=== PATIENT | female | born 1990 | race American Indian/Alaskan Native ===

== ENCOUNTER 2022-05-28 17:53 | Emergency (ER) | payer OTHER, MEDICAID ==
[2022-05-28 18:27] VITALS: BP 132/95
[2022-05-29] MEDS ORDERED: DOXYCYCLINE 100 MG CAP PO ONE (00:04)
[2022-05-29] MEDS ORDERED: KETOROLAC 10 MG TAB PO ONE (00:04)
--- NOTE | 2022-05-29 00:30 | Emergency Department Report ---
- General Chief complaint: Skin/Abscess/Foreign Body Stated complaint: BOIL UNDER STOMACH AREA/ARMPIT Time Seen by Provider: 05/29/22 00:04 Source: patient Mode of arrival: Ambulatory Limitations: No Limitations - History of Present Illness Initial comments: 32-year-old black female with no past medical history presents to the emergency department for evaluation of abscess to left axillary area and suprapubic area. She states that she noticed abscess initially 1-1/2 weeks ago under her arm that she pressed and that moderate amount of purulent drainage. She states that abscess to her suprapubic area is firm and she has not been able to get any drainage from it. She denies fever, abdominal pain, nausea, and vomiting. MD complaint: abscess/boil -: week(s) (1.5) Location: LUE (Axillary area), genitals (Suprapubic area) Severity: mild Severity scale (0 -10): 2 Quality: aching Consistency: intermittent Worsens with: palpation Associated symptoms: denies other symptoms Treatments Prior to Arrival: attempted to drain pus at - Related Data Previous Rx's Medication Instructions Recorded Last Taken Type Amoxicillin/Potassium Clav 1 each PO BID 7 Days #14 10/12/21 Unknown Rx [Augmentin 875-125 Tablet] Docusate Sodium [Colace] 100 mg PO BID PRN 30 Days #60 10/12/21 Unknown Rx capsule Ferrous Sulfate [Ferrous Sulfate 324 mg PO TID 30 Days #90 10/12/21 Unknown Rx 324 MG] DOXYCYCLINE Hyclate [Vibramycin] 100 mg PO Q12HR 7 Days #14 capsule 05/29/22 Un known Rx Allergies Allergy/AdvReac Type Severity Reaction Status Date / Time ciprofloxacin [From Cipro] Allergy Rash Verified 10/10/21 15:55 sulfamethoxazole Allergy Rash Verified 10/10/21 15:55 [From Bactrim] trimethoprim [From Bactrim] Allergy Rash Verified 10/10/21 15:55 Abscess Boil HPI - HPI Chief Complaint: Skin/Abscess/Foreign Body Stated Complaint: BOIL UNDER STOMACH AREA/ARMPIT Time Seen by Provider: 05/29/22 00:04 Home Medications: Previous Rx's Medication Instructions Recorded Last Taken Type Amoxicillin/Potassium Clav 1 each PO BID 7 Days #14 10/12/21 Unknown Rx [Augmentin 875-125 Tablet] Docusate Sodium [Colace] 100 mg PO BID PRN 30 Days #60 10/12/21 Unknown Rx capsule Ferrous Sulfate [Ferrous Sulfate 324 mg PO TID 30 Days #90 10/12/21 Unknown Rx 324 MG] DOXYCYCLINE Hyclate [Vibramycin] 100 mg PO Q12HR 7 Days #14 capsule 05/29/22 Unknown Rx Allergies/Adverse Reactions: Allergies Allergy/AdvReac Type Severity Reaction Status Date / Time ciprofloxacin [From Cipro] Allergy Rash Verified 10/10/21 15:55 sulfamethoxazole Allergy Rash Verified 10/10/21 15:55 [From Bactrim] trimethoprim [From Bactrim] Allergy Rash Verified 10/10/21 15:55 ED Review of Systems ROS: Stated complaint: BOIL UNDER STOMACH AREA/ARMPIT Other details as noted in HPI Comment: All other systems reviewed and negative Constitutional: denies: chills, fever Eyes: denies: vision change Respiratory: denies: shortness of breath Cardiovascular: denies: chest pain, palpitations Gastrointestinal: denies: abdominal pain, nausea, vomiting Genitourinary: denies: urgency, dysuria Musculoskeletal: denies: back pain Skin: denies: rash, lesions Neurological: denies: headache, weakness ED Past Medical Hx - Past Medical History Hx Hypertension: No Hx Heart Attack/AMI: No Hx Congestive Heart Failure: No Hx Diabetes: No Hx Deep Vein Thrombosis: No Hx Liver Disease: No Hx Renal Disease: No Hx Sickle Cell Disease: No Hx Seizures: No Hx Asthma: No Hx COPD: No Hx HIV: No - Social History Smoking Status: Never Smoker - Medications Home Medications: Home Medications Medication Instructions Recorded Confirmed Last Taken Type Amoxicillin/Potassium Clav 1 each PO BID 7 Days #14 10/12/21 Unknown Rx [Augmentin 875-125 Tablet] Docusate Sodium [Colace] 100 mg PO BID PRN 30 Days #60 10/12/21 Unknown Rx capsule Ferrous Sulfate [Ferrous Sulfate 324 mg PO TID 30 Days #90 10/12/21 Unknown Rx 324 MG] DOXYCYCLINE Hyclate [Vibramycin] 100 mg PO Q12HR 7 Days #14 capsule 05/29/22 Unknown Rx ED Physical Exam - General Limitations: No Limitations General appearance: alert, in no apparent distress - Head Head exam: Present: atraumatic, normocephalic - Eye Eye exam: Present: normal appearance. Absent: conjunctival injection, periorbital swelling, periorbital tenderness - Neck Neck exam: Present: normal inspection, full ROM. Absent: tenderness, lymphadenopathy - Respiratory Respiratory exam: Present: normal lung sounds bilaterally. Absent: respiratory distress, wheezes, rales, rhonchi, stridor, chest wall tenderness - Cardiovascular Cardiovascular Exam: Present: regular rate, normal heart sounds - GI/Abdominal GI/Abdominal exam: Present: soft, normal bowel sounds. Absent: distended, tenderness, guarding, rebound, rigid - Extremities Exam Extremities exam: Present: normal inspection, full ROM, normal capillary refill. Absent: pedal edema, calf tenderness - Back Exam Back exam: Present: normal inspection - Neurological Exam Neurological exam: Present: alert, oriented X3, normal gait - Psychiatric Psychiatric exam: Present: normal affect, normal mood - Skin Skin exam: Present: warm, dry, intact, normal color - Expanded Skin Exam Expanded 1 - Circular abscessed area noted to be 2 cm in diameter. Minimal amount of erythema and edema noted, tender to palpation, but no purulent drainage noted. 2 - Small abscessed area less than 1 cm in diameter noted. Area tender to touch with minimal erythema and edema noted. No drainage noted. ED Course Vital Signs 05/28/22 18:25 Temperature 98 F Pulse Rate 88 Respiratory 16 Rate Blood Pressure 132/95 [Left] O2 Sat by Pulse 98 Oximetry ED Medical Decision Making - Medical Decision Making 32-year-old black female with no past medical history presents to the emergency department for evaluation of abscess to left axillary area and suprapubic area. She states that she noticed abscess initially 1-1/2 weeks ago under her arm that she pressed and that moderate amount of purulent drainage. She states that abscess to her suprapubic area is firm and she has not been able to get any drainage from it. She denies fever, abdominal pain, nausea, and vomiting. Physical exam consistent with abscess to suprapubic area and left axillary area. Abscesses firm and not fluctuant. Patient will be treated with 7-day course of doxycycline and advised to follow-up with her primary care provider if no improvement or worsening symptoms. She is advised to return to the emergency department as needed. She verbalizes understanding of and agreement with plan of care. Critical care attestation.: If time is entered above; I have spent that time in minutes in the direct care of this critically ill patient, excluding procedure time. ED Disposition Clinical Impression: Abscess Disposition: HOME / SELF CARE / HOMELESS Is pt being admited?: No Does the pt Need Aspirin: No Condition: Stable Instructions: Skin Abscess, [id number] Additional Instructions: Take medications as prescribed. Follow-up with your primary care provider if no improvement or worsening symptoms. Return to the emergency department as needed. Prescriptions: DOXYCYCLINE Hyclate [Vibramycin] 100 mg PO Q12HR 7 Days #14 capsule Referrals: ZORAIDA TALAVREA MD [Staff Physician] - 3-5 Days Time of Disposition: 00:32
== END 2022-05-29 01:32 | disposition home or self-care (01) ==
LOC: ED 17:53
DX: L02.412 Cutaneous abscess of left axilla (principal); Z88.8 Allergy status to other drugs, medicaments and biological substances
CPT/HCPCS: 99282